=== PATIENT | male | born 1995 ===

== ENCOUNTER 2019-07-02 13:30 | Emergency (ER) | payer SELFPAY ==
[~2019-07-02] VITALS: Ht 180.3 cm; Wt 86.4 kg
[2019-07-02 13:31] VITALS: BP 125/72
== END 2019-07-02 13:53 | disposition home or self-care (01) ==
LOC: ER 13:30
DX: M25.571 Pain in right ankle and joints of right foot (principal); Z88.6 Allergy status to analgesic agent; V29.49XA Motorcycle driver injured in collision with other motor vehicles in traffic accident, initial encounter; Y93.89 Activity, other specified; Y92.488 Other paved roadways as the place of occurrence of the external cause; Y99.8 Other external cause status
CPT/HCPCS: 99283